=== PATIENT | female | born 1985 ===

== ENCOUNTER 2017-02-17 01:48 | Inpatient (IN) | payer MEDICAID, SELFPAY ==
[2017-02-17 02:19] VITALS: BMI 30.2
[2017-02-17] MEDS ORDERED: ceFAZolin 1 GM in Sodium Chloride 0.9% 100 ML IVPB ONE (02:20)
[2017-02-17 02:36] LABS: BASO % 0.2 % (0.0-2.0); EOS # 0.2 K/uL (0.0-0.7); EOS % 1.7 % (0.0-4.0); HEMATOCRIT 41.3 % (34.0-47.0); LYMPH % 11.2 % (20.0-40.0); MEAN CELL VOLUME 88.5 fl (81.0-99.0); MEAN CORPUSCULAR HGB CONC 32.8 g/dL (33.0-37.0); MEAN PLATELET VOLUME 10.6 fl (7.2-11.7); MONO # 0.7 K/uL (0.0-0.8); NEUT # 7.1 K/uL (1.8-7.0); NEUT % 78.9 % (50.0-75.0); NRBC % 0.1 % (0.0-0.0); RED CELL DISTRIBUTION WIDTH 13.5 % (11.5-14.5)
[2017-02-17] MEDS ORDERED: Lactated Ringer's 1,000 ML IV SCH (02:45)
[2017-02-17] MEDS ORDERED: ceFAZolin 2 GM in Sodium Chloride 0.9% 100 ML IVPB ONE (02:50)
[2017-02-17] MEDS ORDERED: Morphine 1 mg/ml preservative-free Inj(Duramorph) ONE (03:12)
[2017-02-17] MEDS ORDERED: DiphenhydrAMINE 50 mg/ml Inj IVP PRN ×2 (03:15→07:56)
[2017-02-17] MEDS ORDERED: Phenylephrine 10 mg/ml Inj ONE (03:28)
[2017-02-17] MEDS ORDERED: Oxycodone/Acetaminophen 5/325 mg Tab PO PRN ×3 (05:11→07:56)
--- NOTE | 2017-02-17 05:49 | OBHP ---
Datetime: 02/17/2017 02:24 IP Adm Impression: , intrauterine ; Ruptured Membranes IP Admit Plan: Admit to unit; Initiate Section protocol Admit Comment, IP Provider: 31 y/o F IUP at 34.6 by LMP presents to the hosp transferred from [facility] [place] for suspected ROM. Patient states last night around 23:20 while she was in bed she noticed clear fluid coming out through her legs. Denies trauma or sexual intercourse. Denies VB or CTXs at th e time. She reports Hx of placenta previa during unresolved in her last US with MFM visit. She was at ED at [place] on february 07 due to vaginal bleeding. Denies nausea, vomiting or urinary symp toms. Allergies: NKA Meds: PNV PMHx: Denies OB Hx: . LMP 06/18/16. 1st trimester US on 08/03/16 7weeks IUP PNC at [facility]. PMD Dr Ochoa Placenta previa(unresolved as per patient). RPR/HIV on 02/10/17 nonreactive Hep B neg SxHx: Breast augmentation SHx: Denies tobacco, etoh or drugs PE: See above A: 31 y/o F IUP at 34.6w. PROM P: -Admits to unit -Initiate C-Sect protocol -Type_ Crossmatch -CBC -Abx prophylaxis: Ancef 2g IV Case evaluated with Dr Jackelyn Yu PGY1 OBH ADDENDUM: PT seen _ examined by me. Agree with above assessment and plan. Pelvic Type - PN: Not Done Extremities - PN: Normal Abdomen - PN: Normal Back - PN: Normal Breast - PN: Normal Lungs - PN: Normal Heart - PN: Normal Thyroid - PN: Normal Neurologic - PN: Normal HEENT - PN: Normal General - PN: Normal Presentation-Admit: Vertex FHR - Baseline A Provider: 140 Amniotic Fluid Color, Provider: Clear Membranes, Provider: Ruptured Contraction Comments Provider: q5min not appreciated by pt Comments, ACOG Physical Exam: Labia majora and minora wet with clear amniotic fluid nitrazine + Gestation - Est Wks by US: 34.6 Nitrazine Provider: Positive Vital Signs Provider: Reviewed; Within Normal Limits IP Chief Complaint: Suspected ruptured membranes NICHD Variability Prov Fetus A: Moderate 6-25bpm NICHD Accel Fetus A IP Provider: 15X15 FHR Category Provider Fetus A: Category I NICHD Decel Fetus A IP Provider: None Genitourinary Exam: Normal DTRs - PN: Not Done
--- NOTE | 2017-02-17 05:53 | OBADHP ---
Datetime: 02/17/2017 02:49 Admit Comment, IP Provider: 31 y/o F IUP at 34.6 by LMP presents to the hosp transferred from [facility] for suspected ROM. Patient states last night around 23:20 while she was in bed she noticed clear fluid coming out through her legs. Denies trauma or sexual intercourse. Denies VB or CTXs at th e time. She reports Hx of placenta previa during unresolved in her last US with MFM visit. Following presentation ctx increased in freq and at this pt c/o intermittent painful ctxs. Allergies: NKA Meds: PNV PMHx: Denies OB Hx: . LMP 06/18/16. 1st trimester US on 08/03/16 7weeks IUP PNC at [facility]. PMD Dr Ochoa Placenta previa(unresolved as per patient). RPR/HIV on 02/10/17 nonreactive Hep B neg SxHx: Breast augmentation SHx: Denies tobacco, etoh or drugs PE: See above A: 31 y/o F IUP at 34.6w. PROM Placenta Previa Onset of Labor P: -Informed consent for cd obtained. Risks of cd, risks of delay in delivery d/w pt. She agreed t o cd. Presentation-Admit: Vertex Datetime: 02/17/2017 02:24 Pelvic Type - PN: Not Done Extremities - PN: Normal Abdomen - PN: Normal Back - PN: Normal Breast - PN: Normal Lungs - PN: Normal Heart - PN: Normal Thyroid - PN: Normal Neurologic - PN: Normal HEENT - PN: Normal General - PN: Normal FHR - Baseline A Provider: 140 Amniotic Fluid Color, Provider: Clear Membranes, Provider: Ruptured Contraction Comments Provider: q5min not appreciated by pt Comments, ACOG Physical Exam: Labia majora and minora wet with clear amniotic fluid nitrazine + Gestation - Est Wks by US: 34.6 Nitrazine Provider: Positive Vital Signs Provider: Reviewed; Within Normal Limits IP Chief Complaint: Suspected ruptured membranes NICHD Variability Prov Fetus A: Moderate 6-25bpm NICHD Accel Fetus A IP Provider: 15X15 FHR Category Provider Fetus A: Category I NICHD Decel Fetus A IP Provider: None Genitourinary Exam: Normal DTRs - PN: Not Done IP Adm Impression: , intrauterine ; Ruptured Membranes IP Admit Plan: Admit to unit; Initiate Section protocol
[2017-02-17] MEDS ORDERED: Multivitamin With Minerals Tab PO SCH (09:00)
[2017-02-17] MEDS: Multivitamin With Minerals Tab PO SCH (10:08)
--- NOTE | 2017-02-17 10:13 | OP ---
PROCEDURE DATE: 02/17/2017 PREOPERATIVE DIAGNOSES: 1. 34.6 weeks gestation with /premature rupture of membranes. 2. Placenta previa. 3. Onset of labor. POSTOPERATIVE DIAGNOSES: 1. 34.6 weeks gestation with /premature rupture of membranes. 2. Placenta previa. 3. Onset of labor. PROCEDURE: Primary low transverse section. SURGEON: Angel Hayden MD FIRST INFANT ROOM TEACHER: Dr. Krishna Deleon SECOND INFANT ROOM TEACHER: Dr. Niko Yu, PGY-1 ANESTHESIOLOGIST: Dr. Andre ANESTHESIA: Spinal. ESTIMATED BLOOD LOSS: 750 mL. Placenta was sent to pathology. COMPLICATIONS: None. FINDINGS: Showed clear amniotic fluid, with a loose nuchal cord, weight of 2890 grams with A pgars of 9 and 9 in cephalic presentation, posterior placenta with previa. DESTINATION: The patient to recovery room in satisfactory condition. to nursery. INDICATIONS: The patient is a 31-year-old female, 1, who presented at 34.6 weeks by LMP and an early ultrasound after having been transferred from [facility]. She had presented to [facility] with complaints of spontaneous rupture of membranes. Upon presentation to [facility], external exam just with visualization of the external genitalia, labia minora and labia majora was noted to be grossly wet with clear amniotic fluid, which was Nitrazine positive. There was no presence of blood noted. A pelvic exam and speculum exam were deferred secondary to the previa. The patient states s he had most recently had an ultrasound 1 week ago, which confirmed the continued presence of her plac enta previa and was advised a section would be indicated. Given patient's history and her r equest for consistent with her previa, an informed consent was obtained for section . Risks, benefits and indications for the procedure were discussed with patient. DESCRIPTION OF PROCEDURE: The patient was taken to the operating room where she underwent her spinal anesthesia without complications. She was then placed in a dorsal supine position with a leftward t ilt and prepped and draped in the routine sterile fashion. A Pfannenstiel skin incision was made wit h the scalpel and this was carried down to the underlying rectus fascia, which was incised in midline with the Bovie and extended bilaterally with the Bovie. The inferior rectus fascial edge was graspe d with Kochers and elevated, and the underlying rectus muscle was dissected off. The same procedure was performed along the superior rectus fascial edge. The muscle was in the midline. The peritoneum was identified and tented upward and incised superiorly and inferiorly. The bladder blade was placed and bladder flap created using sharp and blunt dissection. A lower uterine transverse in cision was made with the knife. The uterine cavity was entered with the Karyn. The uterine incision was extended digitally, followed by use of bandage scissors. The 's head was delivered. A l oose nuchal cord was noted, which was reduced and this was followed by delivery of the remaining port ion of the baby. The cord was clamped and cut. The baby was handed off to the waiting cosmetic manager . The cord blood was collected. Attempt was made to deliver the placenta spontaneously. The cord a vulsed and the placenta was manually extracted. The uterus was then cleared of all clots and debris. The uterus was exteriorized and a stitch of 0 Vicryl, a running locked suture of [address] along the uterine incision, followed by an imbricated stitch with 0 Monocryl. The abdomen was irri gated and cleared of all clots and debris. The uterus was returned to the anterior abdominal cavity and the pelvic cavity was irrigated and cleared of all clots and debris. The uterine incision was re inspected. Excellent hemostasis was confirmed. The peritoneum was closed with 2-0 Vicryl in a runni ng fashion. The muscle was reapproximated with 2-0 Vicryl in a simple interrupted fashion. The fasc ia was closed with 0 Vicryl in a running fashion beginning in the right corner going medial and the o ther beginning left lateral corner going medially. The wound was irrigated. Good hemostasis was con firmed. The subcutaneous tissue was reapproximated with 2-0 plain in simple interrupted fashion. Th e skin was reapproximated with 4-0 Monocryl in a subcuticular fashion. All sponge, lap, needle count s were correct x 2. Of note, Dr. Deleon was my first elementary assistant principal. He assisted in surgical e ntry, surgical exposure, surgical hemostasis, delivery of and surgical closure. His assistan ce was essential to the operation. Angel Hayden MD cc: [id number] TT: 02/17/2017 10:12:29 en
[2017-02-17] MEDS: Lactated Ringer's 1,000 ML IV SCH (15:05)
[2017-02-17] MEDS ORDERED: Docusate-Senna 50 mg-8.6 mg Tab PO SCH (22:00)
[2017-02-17] MEDS ORDERED: Influenza Vaccine(5yr & older) 0.5 ML/45 MCG IM ONE (23:56)
[2017-02-18] MEDS: Oxycodone/Acetaminophen 5/325 mg Tab PO PRN ×2 (01:15→09:20)
[2017-02-18 07:22] LABS: BASO % 0.2 % (0.0-2.0); EOS # 0.1 K/uL (0.0-0.7); EOS % 0.4 % (0.0-4.0); HEMATOCRIT 32.8 % (34.0-47.0); LYMPH # 1.5 K/uL (1.0-4.3); LYMPH % 9.7 % (20.0-40.0); MEAN CELL VOLUME 89.4 fl (81.0-99.0); MEAN CORPUSCULAR HEMOGLOBIN 28.9 pg (27.0-31.0); MEAN CORPUSCULAR HGB CONC 32.3 g/dL (33.0-37.0); MEAN PLATELET VOLUME 10.1 fl (7.2-11.7); MONO % 6.7 % (0.0-10.0); NEUT # 12.5 K/uL (1.8-7.0); PLATELET COUNT 212 K/uL (130-400); RED CELL DISTRIBUTION WIDTH 13.7 % (11.5-14.5); WHITE BLOOD COUNT 15.1 K/uL (4.8-10.8)
[2017-02-18] MEDS: Multivitamin With Minerals Tab PO SCH (09:20)
--- NOTE | 2017-02-18 10:42 | OBPPN ---
Datetime: 02/18/2017 06:14 PP Pain Prov: Within normal limits PP Nausea Prov: Denies PP Flatus Prov: No PP BM Prov: No PP Breasts Prov: Normal PP Heart Prov: Normal PP Lungs Prov: Normal PP Abdomen/Uterus Prov: Normal PP Lochia Prov: Normal PP Vulva/Perineum Prov: Normal PP CVA Tenderness Prov: Normal PP Extremities Prov: Normal PP C/S Incision Prov: Normal PP Comments Phys Exam Prov: Not acute distress. Confortable in bed. No resp distress. RRR, S1S2. [place] malena firm umb level. Dressing removed. Wound intact, clean dry. Alert, Oriented PP Impression Prov: Normal progression PP Plan Prov: Continue present management PP Progress Note Prov: POD1 Patient seen at bedside in not acute distress. She is tolerating PO, pereira was removed and patient is voiding with no difficulty. No BM or flatus yet. Dressing removed and wound is clean and dry. Loc hia like menses. Pain controlled with meds. Baby in NICU. O: See above A: s/p C-Sect POD1. Normal progression P: Cont motrin and percocet prn for pain Reg diet Senokot S HS Encourage ambulation Anticipated DC 02/20/17 Niko Yu PGY1 OBHospitalist on-call..I saw and examined this patient....agree with note...MIGNON HOWE PP Procedures: None Vital Signs Provider PP: Reviewed; Within Normal Limits
[2017-02-18 10:44] LABS: TOTAL CELLS COUNTED 100
[2017-02-18 10:45] LABS: EOSINOPHIL 1 % (0-7); NEUTROPHIL 85 % (42-75)
[2017-02-18] MEDS ORDERED: Measles, Mumps, and Rubella Vaccine SC ONE (11:00)
[2017-02-18] MEDS ORDERED: Simethicone 80 mg Chewtab PO PRN (17:05)
--- NOTE | 2017-02-18 21:58 | CP.PCM.CON ---
<Shubham Sandoval - Last Filed: 02/18/17 22:15> History of Present Illness - History of Present Illness History of Present Illness: General Surgery: Dr. Barron 31F w/ no significant PMHx presented to [facility] ED after being transfer from [facility] w / ROM. Patient underwent a on 02/17/17. Today general surgery was consulted for possible post-operative ileus. Patient reports becoming distended after having food and had episodes of abdominal discomfort and nausea. At time of examination patient reports earlier tonight she began passing gas after ambulating around room and hallways. She reports her nausea has subsided but reports some belching. Currently denies fever/chills , nausea/vomiting/diarrhea. Patient has mild tenderness to deep palpation along abdominal lower quadrants. PMHx: as stated above Allergies: NKDA PSurgHx: Breast augmentation, Soc Hx: Denies smoking, illicit drug use. Reports social EtOH use prior to Review of Systems - Review of Systems Review of Systems: 12 ROS carried out, unremarkable; except as stated in HPI Past Patient History - Infectious Disease Hx of Infectious Diseases: None - Tetanus Immunizations Tetanus Immunization: Unknown - Past Social History Smoking Status: Never Smoked - PSYCHIATRIC Hx Substance Use: No - SURGICAL HISTORY Other/Comment: breast augmentation - ANESTHESIA Hx Anesthesia: Yes Hx Anesthesia Reactions: No Hx Malignant Hyperthermia: No Meds Home Medications: Home Medication List Medication Instructions Recorded Confirmed Type Docusate Sodium/Sennosides A 2 tab PO HS #20 tab NS 02/18/17 Rx [Senokot S 50 MG-8.6 MG] Ibuprofen [Motrin Tab] 600 mg PO Q4H PRN #30 tab NS 02/18/17 Rx oxyCODONE/Acetaminophen [Percocet 1 tab PO Q6H PRN #20 tab NS 02/18/17 Rx 5/325 mg Tab] Allergies/Adverse Reactions: Allergies Allergy/AdvReac Type Severity Reaction Status Date / Time No Known Allergies Allergy Verified 02/17/17 00:35 - Medications Medications: Current Medications Diphenhydramine HCl (Benadryl) 50 mg IVP Q6 PRN PRN Reason: Itching / Pruritus Lactated Ringer's (Lactated Ringer's) 1,000 mls @ 125 mls/hr IV .Q8H [facility] Last Admin: 02/17/17 15:05 Dose: 125 mls/hr Ibuprofen (Motrin Tab) 600 mg PO Q4H PRN PRN Reason: Pain, Mild (1-3) Last Admin: 02/18/17 17:11 Dose: 600 mg Ketorolac Tromethamine (Toradol) 30 mg IVP Q6 PRN PRN Reason: For PCEA Breakthrough Pain Multivitamins/Minerals (Therapeutic-M Tab) 1 tab PO DAILY [facility] Last Admin: 02/18/17 09:20 Dose: 1 tab Ondansetron HCl (Zofran Inj) 4 mg IVP Q6 PRN PRN Reason: Nausea/Vomiting Last Admin: 02/17/17 08:34 Dose: 4 mg Oxycodone/Acetaminophen (Percocet 5/325 Mg Tab) 1 tab PO Q4 PRN PRN Reason: Pain, moderate (4-7) Stop: 02/20/17 05:12 Last Admin: 02/18/17 09:20 Dose: 1 tab Oxycodone/Acetaminophen (Percocet 5/325 Mg Tab) 2 tab PO Q4 PRN PRN Reason: Pain, severe (8-10) Stop: 02/20/17 05:12 Senna/Docusate Sodium (Senokot S 50 Mg-8.6 Mg) 2 tab PO HS [facility] Simethicone (Mylicon Chew Tab) 80 mg PO TID PRN PRN Reason: Flatulence Last Admin: 02/18/17 17:13 Dose: 80 mg Physical Exam - Constitutional Appears: No Acute Distress - Head Exam Head Exam: NORMOCEPHALIC - Eye Exam Eye Exam: Normal appearance - ENT Exam ENT Exam: Mucous Membranes Moist - Respiratory Exam Respiratory Exam: NORMAL BREATHING PATTERN - Cardiovascular Exam Cardiovascular Exam: +S1, +S2 - GI/Abdominal Exam GI & Abdominal Exam: Distended, Normal Bowel Sounds, Soft, Tenderness. absent: Guarding, Rigid - Extremities Exam Extremities exam: Positive for: pedal edema, pedal pulses present. Negative for : calf tenderness Additional comments: b/l pedal edema - Neurological Exam Neurological exam: Alert, Oriented x3 - Psychiatric Exam Psychiatric exam: Normal Mood - Skin Skin Exam: Dry, Normal Color, Warm Results - Labs Result Diagrams: 02/18/17 06:25 Labs: Laboratory Results - last 24 hr 03/24/17 06:25 WBC 15.1 H D RBC 3.68 L Hgb 10.6 L D Hct 32.8 L MCV 89.4 MCH 28.9 MCHC 32.3 L RDW 13.7 Plt Count 212 MPV 10.1 Neut % (Auto) 83.0 H Lymph % (Auto) 9.7 L [place] % (Auto) 6.7 Eos % (Auto) 0.4 Baso % (Auto) 0.2 Neut # 12.5 H Lymph # 1.5 [place] # 1.0 H Eos # 0.1 Baso # 0.0 Neutrophils % (Manual) 85 H Lymphocytes % (Manual) 8 L Monocytes % (Manual) 6 Eosinophils % (Manual) 1 Platelet Estimate Normal RBC Morphology Normal Assessment & Plan - Assessment and Plan (Free Text) Assessment: 31F s/p POD#1 with abdominal distension likely 2/2 post-operative ileus -Keep patient NPO -IVF -F/u Abd X-ray -C/w analgesics -Encourage ambulation -Will re-evaluate patient in AM -F/u AM labs -Medical management as per OBGYN & medicine teams -Assessment and plan discussed with Dr. Barron, agrees w/ above. - Date & Time Date: 02/18/17 Time: 21:00 <Edwardo Barron - Last Filed: 02/19/17 15:18> History of Present Illness - History of Present Illness History of Present Illness: Patient was seen and examined at the bedside. Agree with resident's note above. Meds - Medications Medications: Current Medications Diphenhydramine HCl (Benadryl) 50 mg IVP Q6 PRN PRN Reason: Itching / Pruritus Lactated Ringer's (Lactated Ringer's) 1,000 mls @ 125 mls/hr IV .Q8H [facility] Last Admin: 02/19/17 15:09 Dose: Not Given Sodium Chloride (Sodium Chloride 0.9%) 1,000 mls @ 125 mls/hr IV .Q8H [facility] Stop: 02/19/17 22:31 Ibuprofen (Motrin Tab) 600 mg PO Q4H PRN PRN Reason: Pain, Mild (1-3) Last Admin: 02/18/17 17:11 Dose: 600 mg Ketorolac Tromethamine (Toradol) 30 mg IVP Q6 PRN PRN Reason: For PCEA Breakthrough Pain Multivitamins/Minerals (Therapeutic-M Tab) 1 tab PO DAILY [facility] Last Admin: 02/19/17 08:31 Dose: 1 tab Ondansetron HCl (Zofran Inj) 4 mg IVP Q6 PRN PRN Reason: Nausea/Vomiting Last Admin: 02/17/17 08:34 Dose: 4 mg Oxycodone/Acetaminophen (Percocet 5/325 Mg Tab) 1 tab PO Q4 PRN PRN Reason: Pain, moderate (4-7) Stop: 02/20/17 05:12 Last Admin: 02/18/17 09:20 Dose: 1 tab Oxycodone/Acetaminophen (Percocet 5/325 Mg Tab) 2 tab PO Q4 PRN PRN Reason: Pain, severe (8-10) Stop: 02/20/17 05:12 Senna/Docusate Sodium (Senokot S 50 Mg-8.6 Mg) 2 tab PO HS [facility] Last Admin: 02/18/17 22:00 Dose: 2 tab Simethicone (Mylicon Chew Tab) 80 mg PO TID PRN PRN Reason: Flatulence Last Admin: 02/18/17 17:13 Dose: 80 mg Results - Labs Result Diagrams: 02/19/17 05:30 02/19/17 05:30 Labs: Laboratory Results - last 24 hr 02/19/17 05:30 WBC 13.6 H RBC 3.59 L Hgb 10.5 L Hct 32.1 L MCV 89.5 MCH 29.2 MCHC 32.6 L RDW 13.8 Plt Count 228 MPV 9.2 Neut % (Auto) 82.4 H Lymph % (Auto) 9.9 L [place] % (Auto) 6.5 Eos % (Auto) 1.0 Baso % (Auto) 0.2 Neut # 11.2 H Lymph # 1.3 [place] # 0.9 H Eos # 0.1 Baso # 0.0 Sodium 142 Potassium 4.0 Chloride 106 Carbon Dioxide 27 Anion Gap 14 BUN 9 Creatinine 0.5 L Est GFR ( Amer) > 60 Est GFR (Non-Af Amer) > 60 Random Glucose 84 Calcium 8.2 L Assessment & Plan - Assessment and Plan (Free Text) Plan: - NPO - IV fluids - pain control - Zofran prn - Will follow
[2017-02-18] MEDS: Docusate-Senna 50 mg-8.6 mg Tab PO SCH (22:00)
[2017-02-18] MEDS ORDERED: Sodium Chloride 0.9% 1,000 ML IV SCH (22:30)
[2017-02-19 06:21] LABS: BASO % 0.2 % (0.0-2.0); EOS # 0.1 K/uL (0.0-0.7); HEMATOCRIT 32.1 % (34.0-47.0); LYMPH # 1.3 K/uL (1.0-4.3); LYMPH % 9.9 % (20.0-40.0); MEAN CELL VOLUME 89.5 fl (81.0-99.0); MEAN CORPUSCULAR HEMOGLOBIN 29.2 pg (27.0-31.0); MEAN CORPUSCULAR HGB CONC 32.6 g/dL (33.0-37.0); MEAN PLATELET VOLUME 9.2 fl (7.2-11.7); MONO # 0.9 K/uL (0.0-0.8); MONO % 6.5 % (0.0-10.0); NEUT # 11.2 K/uL (1.8-7.0); NEUT % 82.4 % (50.0-75.0); RED CELL DISTRIBUTION WIDTH 13.8 % (11.5-14.5); WHITE BLOOD COUNT 13.6 K/uL (4.8-10.8)
[2017-02-19 06:27] LABS: BLOOD UREA NITROGEN 9 mg/dl (7-17); CALCIUM 8.2 mg/dL (8.4-10.2); CARBON DIOXIDE 27 mmol/L (22-30); CHLORIDE 106 mmol/L (98-107); GFR AFRICAN-AMERICAN > 60; GLUCOSE,RANDOM 84 mg/dL (65-105); SODIUM 142 mmol/l (132-148)
--- NOTE | 2017-02-19 08:23 | RAD ---
HISTORY: Suspected postoperative paralytic ileus COMPARISON: No prior. FINDINGS: BOWEL: Normal. No obstruction. No free air. BONES: Normal. OTHER FINDINGS: None. IMPRESSION: No active disease.
[2017-02-19] MEDS: Multivitamin With Minerals Tab PO SCH (08:31)
--- NOTE | 2017-02-19 08:54 | CP.PCM.PN ---
<Shubham Sandoval - Last Filed: 02/19/17 08:55> Subjective - Date & Time of Evaluation Date of Evaluation: 02/19/17 Time of Evaluation: 07:55 - Subjective Subjective: Gen Surg: Dr. Barron Patient seen and examined this morning at bedside. Patient in good spirits. Seen ambulating in room. Patient reports passing flatus throughout the night. States ambulating has helped her. Requesting diet. Currently denies f/c, chest pain/SOB, n/v/d. NAEO. Objective - Medications Medications: Current Medications Diphenhydramine HCl (Benadryl) 50 mg IVP Q6 PRN PRN Reason: Itching / Pruritus Lactated Ringer's (Lactated Ringer's) 1,000 mls @ 125 mls/hr IV .Q8H [facility] Last Admin: 02/17/17 15:05 Dose: 125 mls/hr Sodium Chloride (Sodium Chloride 0.9%) 1,000 mls @ 125 mls/hr IV .Q8H [facility] Stop: 02/19/17 22:31 Ibuprofen (Motrin Tab) 600 mg PO Q4H PRN PRN Reason: Pain, Mild (1-3) Last Admin: 02/18/17 17:11 Dose: 600 mg Ketorolac Tromethamine (Toradol) 30 mg IVP Q6 PRN PRN Reason: For PCEA Breakthrough Pain Multivitamins/Minerals (Therapeutic-M Tab) 1 tab PO DAILY [facility] Last Admin: 02/19/17 08:31 Dose: 1 tab Ondansetron HCl (Zofran Inj) 4 mg IVP Q6 PRN PRN Reason: Nausea/Vomiting Last Admin: 02/17/17 08:34 Dose: 4 mg Oxycodone/Acetaminophen (Percocet 5/325 Mg Tab) 1 tab PO Q4 PRN PRN Reason: Pain, moderate (4-7) Stop: 02/20/17 05:12 Last Admin: 02/18/17 09:20 Dose: 1 tab Oxycodone/Acetaminophen (Percocet 5/325 Mg Tab) 2 tab PO Q4 PRN PRN Reason: Pain, severe (8-10) Stop: 02/20/17 05:12 Senna/Docusate Sodium (Senokot S 50 Mg-8.6 Mg) 2 tab PO HS [facility] Last Admin: 02/18/17 22:00 Dose: 2 tab Simethicone (Mylicon Chew Tab) 80 mg PO TID PRN PRN Reason: Flatulence Last Admin: 02/18/17 17:13 Dose: 80 mg - Labs Labs: 02/19/17 05:30 02/19/17 05:30 - Constitutional Appears: No Acute Distress - Head Exam Head Exam: NORMOCEPHALIC - Eye Exam Eye Exam: Normal appearance - ENT Exam ENT Exam: Mucous Membranes Moist - Respiratory Exam Respiratory Exam: NORMAL BREATHING PATTERN - Cardiovascular Exam Cardiovascular Exam: +S1, +S2 - GI/Abdominal Exam GI & Abdominal Exam: Soft, Tenderness (slight tenderness near surgical site incision). absent: Distended, Firm, Guarding, Rigid - Extremities Exam Extremities Exam: Pedal Edema - Neurological Exam Neurological Exam: Alert, Awake, Oriented x3 - Psychiatric Exam Psychiatric exam: Normal Mood - Skin Skin Exam: Intact, Normal Color, Warm Assessment and Plan - Assessment and Plan (Free Text) Assessment: 31F s/p POD#2 with abdominal distension likely 2/2 post-operative ileus- appears to have resolved -Start on CLD -F/u Abd X-ray -C/w analgesics -Encourage ambulation -F/u AM labs -Medical management as per OBGYN & medicine teams -Assessment and plan discussed with Dr. Barron, agrees w/ above. <Edwardo Barron - Last Filed: 02/19/17 15:26> Subjective - Date & Time of Evaluation Date of Evaluation: 02/19/17 Time of Evaluation: 14:20 - Subjective Subjective: Patient was seen and examined at the bedside. Agree with resident's note above Objective - Medications Medications: Current Medications Diphenhydramine HCl (Benadryl) 50 mg IVP Q6 PRN PRN Reason: Itching / Pruritus Lactated Ringer's (Lactated Ringer's) 1,000 mls @ 125 mls/hr IV .Q8H [facility] Last Admin: 02/19/17 15:09 Dose: Not Given Sodium Chloride (Sodium Chloride 0.9%) 1,000 mls @ 125 mls/hr IV .Q8H [facility] Stop: 02/19/17 22:31 Ibuprofen (Motrin Tab) 600 mg PO Q4H PRN PRN Reason: Pain, Mild (1-3) Last Admin: 02/18/17 17:11 Dose: 600 mg Ketorolac Tromethamine (Toradol) 30 mg IVP Q6 PRN PRN Reason: For PCEA Breakthrough Pain Multivitamins/Minerals (Therapeutic-M Tab) 1 tab PO DAILY [facility] Last Admin: 02/19/17 08:31 Dose: 1 tab Ondansetron HCl (Zofran Inj) 4 mg IVP Q6 PRN PRN Reason: Nausea/Vomiting Last Admin: 02/17/17 08:34 Dose: 4 mg Oxycodone/Acetaminophen (Percocet 5/325 Mg Tab) 1 tab PO Q4 PRN PRN Reason: Pain, moderate (4-7) Stop: 02/20/17 05:12 Last Admin: 02/18/17 09:20 Dose: 1 tab Oxycodone/Acetaminophen (Percocet 5/325 Mg Tab) 2 tab PO Q4 PRN PRN Reason: Pain, severe (8-10) Stop: 02/20/17 05:12 Senna/Docusate Sodium (Senokot S 50 Mg-8.6 Mg) 2 tab PO HS [facility] Last Admin: 02/18/17 22:00 Dose: 2 tab Simethicone (Mylicon Chew Tab) 80 mg PO TID PRN PRN Reason: Flatulence Last Admin: 02/18/17 17:13 Dose: 80 mg - Labs Labs: 02/19/17 05:30 02/19/17 05:30 Assessment and Plan - Assessment and Plan (Free Text) Plan: - No general surgery intervention at present time - Advance diet as tolerated - Out of bed and ambulate - Continue care vas per [employer] team - Will follow
--- NOTE | 2017-02-19 09:01 | OBPPN ---
Datetime: 02/19/2017 05:39 PP Pain Prov: Within normal limits PP Breasts Prov: Normal PP Heart Prov: Normal PP Lochia Prov: Normal PP Vulva/Perineum Prov: Not Done PP CVA Tenderness Prov: Normal PP C/S Incision Prov: Normal PP Progress Prov: Normal PP Comments Phys Exam Prov: Not acute distress. Confortable in bed. No resp distress. RRR, S1S2. [place] malena firm umb level. Abd soft, mild diffuse tenderness. Wound intact, clean dry. Alert, Oriented PP Impression Prov: Normal progression PP Plan Prov: Continue present management PP Progress Note Prov: POD2 Patient seen at bedside in not acute distress. She states abd pain and bloating has improved and s he feel better since she started passing gasses She is on NPO, was tolerating PO before. Denies nause a or vomiting, voiding with no difficulty. No BM. +flatus. Wound is clean and dry. Lochia like menses . Pain controlled with meds. She is able to ambulate with no difficulty O: See above A: s/p C-Sect POD2. Suspected Ileus: Improved P: Cont motrin and percocet prn for pain F/U Sx recs F/U CBC/BMP F/U abd Xray Senokot S HS Encourage ambulation Anticipated DC 02/20/17 Niko Yu PGY1 OBHospitalist on-call..Yesterday, she had increased abd distention/gas pain, given Mylicon but did not improve. General surgery was contacted at 18:00pm for consultation...Dr Barron attending physic rosa and Dr Sandoval (president finance company notified). Abd Xray was done and she was placed NPO diet. Today,I saw and examined this patient. She looks better this AM....agree with note...awaiting coretta jung follow up MAHNDO IP PP Procedures: None Datetime: 02/18/2017 18:33 PP Nausea Prov: Denies PP Flatus Prov: No PP BM Prov: No PP Lungs Prov: Normal PP Abdomen/Uterus Prov: Abnormal PP Extremities Prov: Normal Vital Signs Provider PP: Reviewed; Within Normal Limits
[2017-02-19] MEDS: Lactated Ringer's 1,000 ML IV SCH ×2 (14:51→15:09)
[2017-02-19] MEDS: Docusate-Senna 50 mg-8.6 mg Tab PO SCH ×2 (22:17→22:21)
[2017-02-20] MEDS ORDERED: Measles, Mumps, and Rubella Vaccine SC ONE (07:45)
[2017-02-20 07:59] LABS: BASO % 0.3 % (0.0-2.0); EOS # 0.2 K/uL (0.0-0.7); EOS % 3.1 % (0.0-4.0); HEMATOCRIT 31.5 % (34.0-47.0); LYMPH # 1.2 K/uL (1.0-4.3); MEAN CELL VOLUME 89.8 fl (81.0-99.0); MEAN CORPUSCULAR HEMOGLOBIN 29.4 pg (27.0-31.0); MEAN CORPUSCULAR HGB CONC 32.8 g/dL (33.0-37.0); MEAN PLATELET VOLUME 8.9 fl (7.2-11.7); MONO # 0.6 K/uL (0.0-0.8); MONO % 7.5 % (0.0-10.0); NEUT # 5.3 K/uL (1.8-7.0); NEUT % 72.1 % (50.0-75.0); WHITE BLOOD COUNT 7.3 K/uL (4.8-10.8)
[2017-02-20 08:23] LABS: BLOOD UREA NITROGEN 11 mg/dl (7-17); CALCIUM 8.2 mg/dL (8.4-10.2); CARBON DIOXIDE 27 mmol/L (22-30); CHLORIDE 105 mmol/L (98-107); GFR AFRICAN-AMERICAN > 60; GLUCOSE,RANDOM 79 mg/dL (65-105); SODIUM 142 mmol/l (132-148)
--- NOTE | 2017-02-20 10:16 | CP.PCM.PN ---
<Ellyn Méndez - Last Filed: 02/20/17 10:13> Subjective - Date & Time of Evaluation Date of Evaluation: 02/20/17 Time of Evaluation: 10:13 - Subjective Subjective: General Surgery - Dr. Barron Pt S&E. [facility] AN[facility]IO. Pt states she had a large BM yesterday. She is on regular diet and tolerating. No N/V, F/C. Objective - Medications Medications: Current Medications Diphenhydramine HCl (Benadryl) 50 mg IVP Q6 PRN PRN Reason: Itching / Pruritus Ibuprofen (Motrin Tab) 600 mg PO Q4H PRN PRN Reason: Pain, Mild (1-3) Last Admin: 02/19/17 20:45 Dose: 600 mg Ketorolac Tromethamine (Toradol) 30 mg IVP Q6 PRN PRN Reason: For PCEA Breakthrough Pain Multivitamins/Minerals (Therapeutic-M Tab) 1 tab PO DAILY [facility] Last Admin: 02/19/17 08:31 Dose: 1 tab Ondansetron HCl (Zofran Inj) 4 mg IVP Q6 PRN PRN Reason: Nausea/Vomiting Last Admin: 02/17/17 08:34 Dose: 4 mg Senna/Docusate Sodium (Senokot S 50 Mg-8.6 Mg) 2 tab PO HS [facility] Last Admin: 02/19/17 22:21 Dose: 2 tab Simethicone (Mylicon Chew Tab) 80 mg PO TID PRN PRN Reason: Flatulence Last Admin: 02/18/17 17:13 Dose: 80 mg - Labs Labs: 02/20/17 05:30 02/20/17 05:30 - Constitutional Appears: No Acute Distress - Head Exam Head Exam: ATRAUMATIC, NORMOCEPHALIC - Eye Exam Eye Exam: Normal appearance - Respiratory Exam Respiratory Exam: NORMAL BREATHING PATTERN. absent: Respiratory Distress - GI/Abdominal Exam GI & Abdominal Exam: Distended (mild, poss. post-), Soft. absent: Guarding, Rigid, Tenderness, Rebound - Neurological Exam Neurological Exam: Alert, Oriented x3 - Psychiatric Exam Psychiatric exam: Normal Affect, Normal Mood - Skin Skin Exam: Dry, Intact Assessment and Plan - Assessment and Plan (Free Text) Assessment: 31F s/p POD#3 w/ post-op ileus, resolved -Tolerating regular diet and having BM -Continue OOB and ambulation to encourage bowel function -No surgical intervention needed -Surgery will sign off, thank you for allowing us to participate in the care of this patient Dw Dr Beatrice Méndez PGY2 <Edwardo Barron - Last Filed: 02/20/17 15:40> Subjective - Date & Time of Evaluation Date of Evaluation: 02/20/17 Time of Evaluation: 15:15 - Subjective Subjective: Agree with resident's note above Objective - Medications Medications: Current Medications Diphenhydramine HCl (Benadryl) 50 mg IVP Q6 PRN PRN Reason: Itching / Pruritus Ibuprofen (Motrin Tab) 600 mg PO Q4H PRN PRN Reason: Pain, Mild (1-3) Last Admin: 02/19/17 20:45 Dose: 600 mg Ketorolac Tromethamine (Toradol) 30 mg IVP Q6 PRN PRN Reason: For PCEA Breakthrough Pain Multivitamins/Minerals (Therapeutic-M Tab) 1 tab PO DAILY [facility] Last Admin: 02/20/17 11:00 Dose: Not Given Ondansetron HCl (Zofran Inj) 4 mg IVP Q6 PRN PRN Reason: Nausea/Vomiting Last Admin: 02/17/17 08:34 Dose: 4 mg Senna/Docusate Sodium (Senokot S 50 Mg-8.6 Mg) 2 tab PO HS [facility] Last Admin: 02/19/17 22:21 Dose: 2 tab Simethicone (Mylicon Chew Tab) 80 mg PO TID PRN PRN Reason: Flatulence Last Admin: 02/18/17 17:13 Dose: 80 mg - Labs Labs: 02/20/17 05:30 02/20/17 05:30
[2017-02-20] MEDS: Multivitamin With Minerals Tab PO SCH (11:00)
--- NOTE | 2017-02-20 12:53 | OBPPN ---
Datetime: 02/20/2017 09:00 PP Pain Prov: Within normal limits PP Nausea Prov: Denies PP Flatus Prov: Yes PP BM Prov: Yes PP Breasts Prov: Normal PP Heart Prov: Normal PP Lungs Prov: Normal PP Abdomen/Uterus Prov: Normal PP Lochia Prov: Normal PP Vulva/Perineum Prov: Normal PP C/S Incision Prov: Normal PP Comments Phys Exam Prov: PP Impression Prov: Normal progression; difficulties PP Plan Prov: Discharge PP Progress Note Prov: POD#3 s/p S: patient tolerating regular diet. +flatus, +BM, improved distension. Patient states she has been amulating w/o difficulty. Pain controlled. O: as above A/P: 31 s/p for PROM, progressing well post -ileus resolved -pain control: motrin/percocet. encouraged use of motrin due to ileus. -regular diet -encouraged OOB + ambulation -MMR prior to discharge Edwina Solitario PGY1 IP PP Procedures: None Vital Signs Provider PP: Reviewed; Within Normal Limits
== END 2017-02-20 15:30 | disposition home or self-care (01) | DRG 650 ==
LOC: H.L&D 01:48 → H.OB/GYN 08:21
PROVIDERS: ADMIT Obstetrics & Gynecology; ATTEND Obstetrics & Gynecology
PROC: 10D00Z1 Extraction of Products of Conception, Low, Open Approach (ICD-10-PCS; principal; 2017-02-17)
PROC: 4A1HXCZ Monitoring of Products of Conception, Cardiac Rate, External Approach (ICD-10-PCS; 2017-02-17)
PROC: 3E0234Z Introduction of Serum, Toxoid and Vaccine into Muscle, Percutaneous Approach (ICD-10-PCS; 2017-02-20)
DX: O60.14X0 Preterm labor third trimester with preterm delivery third trimester, not applicable or unspecified (principal); O44.03 Complete placenta previa NOS or without hemorrhage, third trimester; K91.3 Postprocedural intestinal obstruction; K91.89 Other postprocedural complications and disorders of digestive system; Z3A.34 34 weeks gestation of pregnancy; O69.81X0 Labor and delivery complicated by cord around neck, without compression, not applicable or unspecified; Z37.0 Single live birth; Z23 Encounter for immunization